=== PATIENT | female | born 1995 | race Caucasian/White ===

== ENCOUNTER 2023-05-21 16:10 | Emergency (ER) | payer OTHER, SELFPAY ==
[2023-05-21 16:13] VITALS: BP 146/86; PULSE 103; O2SAT 99
[2023-05-21 16:25] VITALS: BP 128/78; PULSE 100; RESP 16; TEMP 36.6; O2SAT 98; BMI 21.0
--- NOTE | 2023-05-21 16:46 | ECG_ITS ---
Test Reason : ETOH Blood Pressure : / mmHG Vent. Rate : 076 BPM Atrial Rate : 076 BPM P-R Int : 164 ms QRS Dur : 080 ms QT Int : 388 ms P-R-T Axes : 077 074 063 degrees QTc Int : 436 ms Normal sinus rhythm Normal ECG No previous ECGs available Referred By: Darryl Loaiza Electronically Signed By:NINA DUTTON
--- NOTE | 2023-05-21 16:46 | ED.GENADULT ---
HPI - General Adult General Chief complaint: ETOH/Substance Use Stated complaint: feeling sick after smoking crack, per ems Time Seen by Provider: 05/21/23 16:30 Source: patient Mode of arrival: ambulatory Limitations: no limitations History of Present Illness HPI narrative: Patient history of heroin abuse today for the 1st time tried cocaine after using cocaine patient felt heart racing and anxious Related Data Allergies Allergy/AdvReac Type Severity Reaction Status Date / Time No Known Allergies Allergy Verified 05/21/23 16:46 Review of Systems Review of Systems: Yes all other systems are reviewed and are negative [facility] Social History Social History Smoked in Last 30 Days: No Use of substances other than those prescribed or required for medical reasons: Yes Substance Use Type: Crack/Cocaine and Heroin Substance Use Frequency: Occasionally Substance Use Frequency Other:: once in a while for heroin; today first time using crack Last Used Substance: Just Prior to Admission Any prior treatment program specific to substance use: Yes Advance Directives: No Advance Directives Information Provided: No Physical Exam ED Vital Signs: Vital Signs - 24 hr 05/21/23 16:25 05/21/23 17:24 05/21/23 17:55 Temperature 97.8 F Pulse Rate 100 76 Respiratory Rate 16 15 Blood Pressure 128/78 123/65 Pulse Oximetry 98 98 99 Oxygen Delivery Method Room Air Room Air Room Air BMI result Body Mass Index 21.0 Appearance: Alert. Oriented X3. No acute distress. Eyes: PERRLA, No Nystagmus ENT: Pharynx normal. Oral Mucosa moist Neck: Normal inspection. Neck supple. CVS: Normal heart rate and rhythm. Pulses normal. Respiratory: No respiratory distress. Equal air entry bilateral, no wheezing/rales/rhonchi Abdomen: Soft and nontender. Bowel sounds are present, no mass palpable, no CVA tenderness Skin: Skin warm and dry. Normal skin color. Normal skin turgor. Extremities: No lower extremity edema. No calf tenderness Neuro: Oriented X 3. No motor deficit. No sensory deficit.No cerebellar signs , cranial nerves II-XII intact Medical Decision Making Medical Decision Making MDM Narrative: Patient anxiety with palpitations secondary to cocaine use EKG normal discharge patient home advised not to use cocaine Independent Interpretation I performed an independent interpretation of an: EKG Interpretation: Normal sinus rhythm heart rate 76 beats per minute normal interval normal axis impression normal EKG Discharge Plan Discharge Clinical Impression: Cocaine abuse Patient Disposition: Home, Self-Care Instructions: Cocaine Abuse (ED) Additional Instructions: Stop using cocaine and heroin Follow-up with detox Interventions: ED Discharge Assessment Last Done: 05/21/23 17:56 Discharge Date/Time: 05/21/23 17:57
[2023-05-21 17:24] VITALS: O2SAT 98
--- NOTE | 2023-05-21 17:27 | PC.NURSE ---
resting calmly w/o distress in hallway. CIWA 0. vss. ecg being taken.
[2023-05-21 17:55] VITALS: BP 123/65; PULSE 76; RESP 15; O2SAT 99
== END 2023-05-21 17:57 | disposition home or self-care (01) ==
PROVIDERS: Emergency Provider Internal Medicine
DX: F14.19 Cocaine abuse with unspecified cocaine-induced disorder (principal); F11.10 Opioid abuse, uncomplicated; Z71.51 Drug abuse counseling and surveillance of drug abuser
CPT/HCPCS: 93005; 99283; 99285

== ENCOUNTER → 2023-05-21 16:46 | Outpatient (BNV) | payer OTHER, SELFPAY | PROVIDERS: Emergency Provider Internal Medicine; Visit Provider Internal Medicine | DX: R41.82 Altered mental status, unspecified (principal) | CPT/HCPCS: 93010 ==

== ENCOUNTER 2023-09-09 22:02 | Emergency (ER) | payer MEDICAID, SELFPAY ==
--- NOTE | 2023-09-09 | ECG_ITS ---
Test Reason : CHEST PAIN Blood Pressure : / mmHG Vent. Rate : 105 BPM Atrial Rate : 105 BPM P-R Int : 138 ms QRS Dur : 074 ms QT Int : 328 ms P-R-T Axes : 084 068 016 degrees QTc Int : 433 ms Sinus tachycardia Possible Left atrial enlargement Nonspecific ST and T wave abnormality RSR' or QR pattern in V1 suggests right ventricular conduction delay Abnormal ECG When compared with ECG of 21-MAY-2023 17:32, Non-specific change in ST segment in Inferior leads Non-specific change in ST segment in Anterolateral leads Inverted T waves have replaced nonspecific T wave abnormality in Inferior leads Referred By: Generic ED Physician Electronically Signed By:BRIAN WATTS MD
--- NOTE | ~2023-09-09 | XR_ITS ---
EXAMINATION: XR CHEST CLINICAL INFORMATION: Chest pain COMPARISON: None available. TECHNIQUE: Frontal view of the chest was obtained. FINDINGS: The lungs are clear with no focal consolidation. No evidence of pneumothorax, pulmonary edema, or pleural effusions. The cardiomediastinal silhouette is unremarkable. No acute osseous findings. XR/XR chest 1V IMPRESSION: No acute cardiopulmonary findings.
[2023-09-09 22:11] VITALS: BP 149/80; PULSE 102; RESP 20; TEMP 36.7; O2SAT 98; BMI 22.7
[2023-09-09 22:28] LABS: Hematocrit 41.7 % (37.0-47.0); Hemoglobin 14.3 g/dl (12.0-16.0); Mean Corpuscular HGB Conc 34.3 g/dl (31.0-35.0); Mean Corpuscular Hemoglobin 30.2 pg (27.0-33.0); Mean Corpuscular Volume 88.2 fL (80.0-98.0); Mean Platelet Volume 9.8 fL (9.4-12.3); Platelet Count 240 X10*3/uL (160-400); Red Blood Count 4.73 X10*6/uL (4.20-5.50); Red Cell Distribution Width 12.9 % (11.0-16.0); White Blood Count 7.3 X10*3/uL (4.8-10.8)
[2023-09-09 22:42] LABS: Alanine Aminotransferase 18 U/L (0-31); Albumin Level 3.9 g/dL (3.5-5.0); Alkaline Phosphatase 92 U/L (39-117); Anion Gap 12 (12-20); Aspartate Amino Transferase 18 U/L (5-31); Bilirubin Total 0.3 mg/dL (0.0-1.0); Blood Urea Nitrogen 9 mg/dL (9-16); Calcium 9.5 mg/dL (8.4-10.2); Carbon Dioxide 25 mmol/L (22-29); Chloride 105 mmol/L (96-108); Creatinine Clr Calc Pharmacy 109.6; Estimated Glomerular Filt Rate > 60; Glucose Random 137 mg/dL (60-115); Potassium 3.4 mmol/L (3.3-5.1); Sodium 139 mmol/L (135-145); Total Protein 7.5 g/dL (6.5-8.0)
[2023-09-09 22:54] LABS: Troponin-I High Sensitivity < 2.7 ng/L (<3.5-17.0)
[2023-09-10 02:45] VITALS: BP 141/87; PULSE 61; RESP 16; O2SAT 99
--- NOTE | 2023-09-10 03:10 | ED.CHESTPAIN ---
HPI - Chest Pain General Chief Complaint: Chest Pain Stated Complaint: Chest Pain, Chest tightness, pounding heart Time Seen by Provider: 09/10/23 02:24 History of Present Illness HPI narrative: Patient is a 28-year-old female presents today with having chest pain is over the left chest area. The chest pain is constant sense of 21:00. Patient took a blood pressure at home was high. She has a history of hypertension. Been clean of heroin for the last 3 months. Patient also smokes cigarettes. No history of diabetes no history of high cholesterol no history of KS no family history of KS patient is from home. The pain is not associated with any shortness of breath no diaphoresis. Related Data Allergies Allergy/AdvReac Type Severity Reaction Status Date / Time No Known Allergies Allergy Verified 05/21/23 16:46 Review of Systems Review of Systems: Positive chest pain PMFSH Past Medical History Attestation statement: The following information was validated with the patient. Social History Substance Use Type: Crack/Cocaine and Heroin Advance Directives: No Advance Directives Information Provided: No Physical Exam Vital Signs: Vital Signs: Last Vital Signs Temp 98.0 F 09/09/23 22:11 Pulse 56 09/10/23 04:00 Resp 16 09/10/23 04:00 BP 115/71 09/10/23 04:00 Pulse Ox 98 09/10/23 04:00 O2 Del Method Room Air 09/10/23 04:00 BMI result Body Mass Index 22.7 Appearance: Alert. Oriented X3. No acute distress. Eyes: Pupils equal, round and reactive to light. ENT: Pharynx normal. Neck: Normal inspection. Neck supple. No lymph nodes noted. No crepitus CVS: Normal heart rate and rhythm. Pulses normal. Normal S1 and S2 Respiratory: No respiratory distress. Breath sounds normal. No Wheezing. No rales Abdomen: Soft and nontender. No rigidity. No distention. good BS x4 Skin: Skin warm and dry. Normal skin color. Normal skin turgor. Extremities: No lower extremity edema. Neurovascular intact to all extremities. No Lacerations. No Rash Neuro: Oriented X 3. No motor deficit. No sensory deficit. Moving all extermities. No slurred speech Medical Decision Making Medical Decision Making MDM Narrative: Patient well-appearing. Chest pain atypical for ACS. She is only 28 years old. She is not on control pills. There is no leg swelling. There is no history of blood clots. No history of cancer. Making PE unlikely. Patient's chest pain atypical for ACS she does have 2 risk factor but she is 28 years old good her troponin is negative x2 sets. Unlikely ACS. Heart score is less than 3. Chest x-ray being done to rule out the possibility of pneumonia pneumothorax Differential Diagnosis Differential Diagnoses: The differential diagnosis associated with the presentation includes ACS, PE, pneumonia, pneumothorax Admission/Observation Consideration of admission/observation: Escalation of care including admission/observation considered Lab Data [facility] Lab Attestation statement: I reviewed the patient's lab results. 09/09/23 22:22 09/09/23 22:22 Labs: Lab Results 09/09/23 09/10/23 Range/Units 22:22 03:30 WBC 7.3 (4.8-10.8) X10*3/uL RBC 4.73 (4.20-5.50) X10*6/uL Hgb 14.3 (12.0-16.0) g/dl Hct 41.7 (37.0-47.0) % MCV 88.2 (80.0-98.0) fL MCH 30.2 (27.0-33.0) pg MCHC 34.3 (31.0-35.0) g/dl RDW 12.9 (11.0-16.0) % Plt Count 240 (160-400) X10*3/uL MPV 9.8 (9.4-12.3) fL Absolute Nucleated RBC 0.000 (0.0-0.012) X10*3/uL Nucleated RBC % (auto) 0.0 (0.0-0.2) /100WBC Sodium 139 (135-145) mmol/L Potassium 3.4 (3.3-5.1) mmol/L Chloride 105 (96-108) mmol/L Carbon Dioxide 25 (22-29) mmol/L Anion Gap 12 (12-20) BUN 9 (9-16) mg/dL Creatinine 0.75 (0.5-1.4) mg/dL Estim Creat Clear Calc 109.6 Estimated GFR > 60 Random Glucose 137 H (60-115) mg/dL Calcium 9.5 (8.4-10.2) mg/dL Total Bilirubin 0.3 (0.0-1.0) mg/dL AST 18 (5-31) U/L ALT 18 (0-31) U/L Alkaline Phosphatase 92 (39-117) U/L Troponin I High Sens < 2.7 < 2.7 (<3.5-17.0) ng/L Total Protein 7.5 (6.5-8.0) g/dL Albumin 3.9 (3.5-5.0) g/dL Radiology Impression Discussion of test interpretation with radiology: I have reviewed the radiologist's reading. Independent Historian Clinical information obtained from an independent historian. History obtained from or confirmed by: Spouse Discharge Plan Discharge Clinical Impression: Chest pain Patient Disposition: Home, Self-Care Instructions: Chest Pain (ED) Referrals: Kurt Hernandez MD [Physician] - 09/15/23
[2023-09-10 04:00] VITALS: BP 115/71; PULSE 56; RESP 16; O2SAT 98
[2023-09-10 04:03] LABS: Troponin-I High Sensitivity < 2.7 ng/L (<3.5-17.0)
== END 2023-09-10 05:18 | disposition home or self-care (01) ==
PROVIDERS: Emergency Provider Emergency Medicine Emergency Medical Services
DX: R07.9 Chest pain, unspecified (principal); I10 Essential (primary) hypertension
CPT/HCPCS: 36415; 71045; 80053; 84484; 85027; 93005; 99283; 99284

== ENCOUNTER → 2023-11-24 16:05 | Outpatient (REF) | payer MEDICAID, SELFPAY ==
--- NOTE | 2023-11-24 16:09 | CA_ITS ---
Transthoracic Echocardiogram Patient (Last, First, Middle): Ju Bhardwaj, Gender: Female Date of : 1995 Age: 28 Procedure Date: 11/24/2023 Procedure Type: Transthoracic Echocardiogram Location: OP Height: 167.64 cm Weight: 63.5 kg BSA: 1.72 m2 Heart Rate: 51 bpm BP: 124 / 70 mmHg Forest [employer] Teacher: RIVKA Referring MD: Belkys NAVA Symptoms: R07.89 CHEST PAIN Study Quality: Adequate ECG Rhythm: Bradycardia Conclusions: - The left ventricular systolic function is normal. The calculated ejection fraction is 61% by biplane method. - No obvious valvular pathology seen on this study. Findings Left Ventricle Normal left ventricular cavity size. There is normal left ventricular wall thickness. The left ventricular systolic function is normal. The calculated ejection fraction is 61% by biplane method. There is no evidence of regional wall motion abnormalities. Diastolic function is normal for age. Right Ventricle Normal right ventricular cavity size and systolic function. Atria Both atria are normal in size. Aortic Valve There is a normal trileaflet aortic valve. There is no aortic valve stenosis. There is no aortic valve regurgitation. Mitral Valve The mitral valve appears normal. There is trace mitral valve regurgitation. There is no mitral valve stenosis. Pulmonic Valve The pulmonic valve is likely normal. Tricuspid Valve Normal tricuspid valve structure. There is trace tricuspid valve regurgitation. There is no evidence of pulmonary hypertension. Great Vessels The asc aorta is normal in size. Venous The inferior vena cava is normal in size and collapses greater than 50% with inspiration. Pericardium/Pleural There is no evidence of pericardial effusion. Prior Study Comparison No prior study available for comparison. Recommendations, Care & Conclusions No obvious valvular pathology seen on this study. Measurements 2D Linear Measurements IVSd: 0.72 0.6-0.9/0.6-1.0 cm LVIDd: 4.52 3.9-5.3/4.2-5.9 cm LVIDd Index: 2.63 2.4-3.2/2.2-3.1 cm/m2 LVIDs: 3.09 2.0-3.6 cm LVPWd: 0.83 0.7-1.1 cm Ao Root: 2.80 2.1-3.5 cm LA Diam: 2.70 2.7-3.8/3.0-4.0 cm LAIDs Index: 1.57 1.5-2.3 cm/m2 LV Mass: 136.79 67-162/88-224 g LV Mass Index: 79.53 43-95/49-115 g/m2 LVOT Diam: 2.10 3.0+(-)1.3 cm 2D Systolic Function EF 4C: 66.20 >55% EF 2C: 56.50 >55% EF BiP: 60.90 >55% Mitral Valve MV Pk E: 0.89 MV PK A: 0.38 MV Decel Time: 315.00 E/A: 2.40 E'Lateral: 19.60 E'Medial: 11.70 E/E' Med: 7.60 E/E' Lat: 4.50 PHT: 92.00 MVA PHT: 2.39 Decel [place]: 2.83 Aortic Valve AoV Pk Alex: 1.21 AoV Mn Alex: 0.79 AoV VTI: 0.30 AoV Pk Grad: 6.00 Aov Mn Grad: 3.00 LESA Cont.VTI: 2.46 LVOT LVOT Pk Alex: 0.82 LVOT Mn Alex: 0.58 LVOT VTI: 0.22 LVOT Pk Grad: 3.00 LVOT Mn Grad: 2.00 LVOT Diam: 2.10 LVOT Area: 3.46 Diastolic Function MV Pk E: 0.89 MV Pk A: 0.38 E/A: 2.40 E'Medial: 11.70 E/E' Med: 7.60 E' Laterial: 19.60 E/E' Lat: 4.50 Right Ventricle TAPSE (mm): 26.90 TVS' Alex: 13.50 Tricuspid Valve TR Pk Alex: 1.94 TR Pk Grad: 15.00 RA Press: 3.00 RVSP: 18.00 Great Vessels Aorta Ao Root-2D: 2.80 2.0-3.7 cm Sinus of Valsalva: 2.80 2.0-3.5 cm Ao Asc: 3.10 2.1-3.4 cm Pulmonary Valve PV Pk Alex: 0.92 Peak PV Grad: 3.00 Updated in Other Vendor System with Status of Final Juan Troncoso MD electronically signed on 11/25/2023 1:22:05 PM with status of Final
== END ==
LOC: HO.CARD 16:05
PROVIDERS: PCP Physician Assistant Medical; Visit Provider Physician Assistant Medical
DX: R07.89 Other chest pain (principal)
CPT/HCPCS: 93306

== ENCOUNTER → 2023-11-24 16:09 | Outpatient (BNV) | payer MEDICAID, SELFPAY | PROVIDERS: PCP Physician Assistant Medical; Visit Provider Internal Medicine | DX: R07.89 Other chest pain (principal) | CPT/HCPCS: 93306 ==

== ENCOUNTER 2024-02-10 01:36 | Emergency (ER) | payer MEDICAID, SELFPAY ==
--- NOTE | 2024-02-10 | ECG_ITS ---
Test Reason : CHEST PAIN Blood Pressure : / mmHG Vent. Rate : 067 BPM Atrial Rate : 067 BPM P-R Int : 170 ms QRS Dur : 090 ms QT Int : 418 ms P-R-T Axes : 071 077 045 degrees QTc Int : 441 ms Normal sinus rhythm Nonspecific T wave abnormality Abnormal ECG When compared with ECG of 09-SEP-2023 22:09, Vent. rate has decreased BY 38 BPM Non-specific change in ST segment in Inferior leads Referred By: Generic ED Physician Electronically Signed By:JAVAD CLINE MD
[2024-02-10 01:40] VITALS: BP 127/84; BP 129/75; PULSE 68; PULSE 84; RESP 17; TEMP 36.9; O2SAT 97; O2SAT 98; BMI 27.7
--- NOTE | 2024-02-10 02:05 | PC.NURSE ---
pt biba from home, a&ox4, respirations even and unlabored, pt reporting chest pain since july, reports it has been increasing x3 days, reports nausea. pt reports pain is epigatric and left sided chest. pt reports being seen by lithographed plate inspector and reports having nothing found medically. pt denies vomiting and diarrhea, pt normal sinus on tele 60-64bpm.
--- NOTE | 2024-02-10 02:09 | ED.CHESTPAIN ---
HPI - Chest Pain General Chief Complaint: Chest Pain Stated Complaint: CHEST PAIN Time Seen by Provider: 02/10/24 01:41 Source: patient Mode of arrival: EMS History of Present Illness HPI narrative: 28-year-old female with history of asthma and ongoing chest pain which she has had for over 1 week this time and describes it as sharp along the lower left border of her chest with reproducible chest pain and then states that it also comes up the left parasternal border and she does describe that she felt a little bit dizzy earlier on in the day and has contacted her primary care doctor as well as her communications equipment supervisor, she reports that she had a stress test approximately 1 week ago and is unsure of the results. Related Data Allergies Allergy/AdvReac Type Severity Reaction Status Date / Time No Known Allergies Allergy Verified 02/10/24 01:42 Review of Systems Review of Systems: Pertinent positives and negatives as stated in HPI REPLACED BY [facility] Past Medical History Source: nursing notes reviewed Social History Social History Alcohol intake: never Smoked in Last 30 Days: Yes Use of substances other than those prescribed or required for medical reasons: Yes Substance Use Type: Marijuana Advance Directives: No Advance Directives Information Provided: No Do you have a plan to hurt others: No Plan Patient : No Physical Exam Vital Signs: Vital Signs: Last Vital Signs Temp 98.5 F 02/10/24 01:40 Pulse 68 02/10/24 01:40 Resp 17 02/10/24 01:40 BP 129/75 02/10/24 01:40 Pulse Ox 97 02/10/24 01:40 O2 Del Method Room Air 02/10/24 01:40 BMI result Body Mass Index 27.7 VITAL SIGNS: Reviewed. GENERAL: Well developed, well nourished, in no acute distress. HEAD: Normocephalic/atraumatic EYES: PERRLA, EOMI LUNGS: Normal breath sounds. No adventitious sounds or accessory muscle use. SpO2<97>; CHEST WALL: Reproducible chest pain noted at the left midclavicular line at the lower border of the left chest all without obvious deformity, no crepitus CARDIOVASCULAR: Regular rate and rhythm without noted murmurs, no JVD or lower extremity edema. ABDOMEN: Soft, non-tender, non-distended with bowel sounds. MUSCULOSKELETAL: No tenderness, deformities, or effusions noted on gross inspection. EXTREMITIES: No cyanosis, clubbing or edema. SKIN: Inspection of the skin reveals no rashes NEUROLOGIC: Alert and oriented x 4. Strength and sensation to light touch were grossly intact x 4. Medical Decision Making Medical Decision Making [facility] Narrative: 28-year-old female with history and clinical presentation, DDX: Anxiety, MSK, lower clinical suspicion for pleurisy/pneumonia/ACS. Every reviewed all investigations and hematologic indices are grossly within normal limits without evidence of anemia or leukocytosis. Chemistry disease are grossly within normal limits without any noted derangements, there is no evidence of JUANPABLO/electrolyte or liver enzyme derangements and high sensitivity troponin is undetectable and there are no acute changes on EKG. My interpretation is that patient is experiencing musculoskeletal associated discomfort and recommended the use of Tylenol and ibuprofen as well as continued follow-up with her primary care doctor and communications equipment supervisor. Differential Diagnosis Differential Diagnoses: The differential diagnosis associated with the presentation includes Please see the discussion above Admission/Observation Consideration of admission/observation: Escalation of care including admission/observation considered Please see the discussion above Lab Data [facility] Lab Attestation statement: I reviewed the patient's lab results. Please see the discussion above 02/10/24 02:19 02/10/24 02:19 Labs: Lab Results 02/10/24 Range/Units 02:19 WBC 7.2 (4.8-10.8) X10*3/uL RBC 4.48 (4.20-5.50) X10*6/uL Hgb 13.6 (12.0-16.0) g/dl Hct 39.4 (37.0-47.0) % MCV 87.9 (80.0-98.0) fL MCH 30.4 (27.0-33.0) pg MCHC 34.5 (31.0-35.0) g/dl RDW 12.4 (11.0-16.0) % Plt Count TNP MPV 10.5 (9.4-12.3) fL Immature Gran % (Auto) 0.6 H (0.0-0.4) % Neut % (Auto) 55.9 (45-73) % Lymph % (Auto) 34.2 (20-40) % [place] % (Auto) 6.8 (2-11) % Eos % (Auto) 1.8 (0-4) % Baso % (Auto) 0.7 (0-2) % Lymph # (Auto) 2.5 (1.2-4.9) X10*3/uL [place] # (Auto) 0.5 (0.1-1.2) X10*3/uL Eos # (Auto) 0.1 (0.0-0.4) X10*3/uL Baso # (Auto) 0.1 (0.0-0.2) X10*3/uL Abs Immat Gran (auto) 0.04 H (0.00-0.03) X10*3/uL Absolute Neuts (auto) 4.0 (2.0-8.3) x10*3/uL Absolute Nucleated RBC 0.000 (0.0-0.012) X10*3/uL Nucleated RBC % (auto) 0.0 (0.0-0.2) /100WBC Smear Tech's Comments VERIFIED Sodium 139 (135-145) mmol/L Potassium 3.8 (3.3-5.1) mmol/L Chloride 107 (96-108) mmol/L Carbon Dioxide 22 (22-29) mmol/L Anion Gap 14 (12-20) BUN 11 (9-16) mg/dL Creatinine 0.71 (0.5-1.4) mg/dL Estim Creat Clear Calc 125.4 Estimated GFR > 60 Random Glucose 89 (60-115) mg/dL Calcium 9.4 (8.4-10.2) mg/dL Total Bilirubin 0.3 (0.0-1.0) mg/dL AST 19 (5-31) U/L ALT 18 (0-31) U/L Alkaline Phosphatase 81 (39-117) U/L Troponin I High Sens < 2.7 (<3.5-17.0) ng/L Total Protein 7.1 (6.5-8.0) g/dL Albumin 3.9 (3.5-5.0) g/dL Independent Interpretation I performed an independent interpretation of an: EKG Interpretation: Normal sinus rhythm, HR-67, no STEMI, RI/QRS/QTC is within normal limits. External Record Review External record reviewed: Outpatient record, Prior outpatient labs and Prior outpatient radiology Critical Care Time Critical Care Time Critical Care Time: Yes Total Critical Care Time: 45 Attestation: I personally attest to this time spent taking care of the patient. Discharge Plan Discharge Clinical Impression: Atypical chest pain, Chest wall pain Instructions: Chest Wall Pain (ED) Additional Instructions: 1. Recommend [id number] Tylenol/ibuprofen as needed for pain control, may also consider [id number] lidocaine patch for additional symptom relief. 2. Please follow-up with your primary care doctor and communications equipment supervisor 1st thing in the morning. Return to the ER for any worsening symptoms. Print Language: Upper Sorbian
[2024-02-10 02:35] LABS: Basophils Absolute Auto 0.1 X10*3/uL (0.0-0.2); Basophils Percent Auto 0.7 % (0-2); Eosinophils Absolute Auto 0.1 X10*3/uL (0.0-0.4); Eosinophils Percent Auto 1.8 % (0-4); Hematocrit 39.4 % (37.0-47.0); Hemoglobin 13.6 g/dl (12.0-16.0); Imm Gran Abs Auto 0.04 X10*3/uL (0.00-0.03); Imm Gran Pct Auto 0.6 % (0.0-0.4); Lymphocytes Absolute Auto 2.5 X10*3/uL (1.2-4.9); Lymphocytes Percent Auto 34.2 % (20-40); MANUAL DIFF FLAG SCAN; Mean Corpuscular HGB Conc 34.5 g/dl (31.0-35.0); Mean Corpuscular Hemoglobin 30.4 pg (27.0-33.0); Mean Corpuscular Volume 87.9 fL (80.0-98.0); Mean Platelet Volume 10.5 fL (9.4-12.3); Monocytes Absolute Auto 0.5 X10*3/uL (0.1-1.2); Monocytes Percent Auto 6.8 % (2-11); Neutrophils Percent Auto 55.9 % (45-73); PLT CLUMP 1; Red Blood Count 4.48 X10*6/uL (4.20-5.50); Red Cell Distribution Width 12.4 % (11.0-16.0); SCAN SMEAR FLAG 1
[2024-02-10 02:38] LABS: Alanine Aminotransferase 18 U/L (0-31); Albumin Level 3.9 g/dL (3.5-5.0); Alkaline Phosphatase 81 U/L (39-117); Anion Gap 14 (12-20); Aspartate Amino Transferase 19 U/L (5-31); Bilirubin Total 0.3 mg/dL (0.0-1.0); Blood Urea Nitrogen 11 mg/dL (9-16); Calcium 9.4 mg/dL (8.4-10.2); Carbon Dioxide 22 mmol/L (22-29); Chloride 107 mmol/L (96-108); Creatinine Clr Calc Pharmacy 125.4; Estimated Glomerular Filt Rate > 60; Glucose Random 89 mg/dL (60-115); Potassium 3.8 mmol/L (3.3-5.1); Sodium 139 mmol/L (135-145); Total Protein 7.1 g/dL (6.5-8.0)
[2024-02-10 02:45] LABS: Troponin-I High Sensitivity < 2.7 ng/L (<3.5-17.0)
[2024-02-10 02:51] LABS: White Blood Count 7.2 X10*3/uL (4.8-10.8)
[2024-02-10 02:52] LABS: SLIDE REVIEW VERIFIED
[2024-02-10 04:20] VITALS: BP 118/71; PULSE 70; RESP 14; TEMP 36.7; O2SAT 99
== END 2024-02-10 04:25 | disposition home or self-care (01) ==
PROVIDERS: Emergency Provider Student in an Organized Health Care Education/Training Program
DX: R07.89 Other chest pain (principal)
CPT/HCPCS: 36415; 80053; 84484; 85025; 93005; 99283; 99285

== ENCOUNTER → 2024-02-10 01:44 | Outpatient (BNV) | payer MEDICAID, SELFPAY | PROVIDERS: Emergency Provider Student in an Organized Health Care Education/Training Program; Visit Provider Internal Medicine Cardiovascular Disease | DX: R07.9 Chest pain, unspecified (principal); R94.31 Abnormal electrocardiogram [ECG] [EKG] | CPT/HCPCS: 93010 ==

== ENCOUNTER 2024-06-28 18:40 | Emergency (ER) | payer MEDICAID, SELFPAY ==
--- NOTE | ~2024-06-28 | XR_ITS ---
EXAMINATION: XR CHEST CLINICAL INFORMATION: Chest pain COMPARISON: Chest x-ray September 10, 2023 TECHNIQUE: 2 views of the chest were obtained. FINDINGS: No significant abnormality is noted involving the heart, lungs, mediastinum, bony thorax or soft tissues. XR/XR chest 2V IMPRESSION: Unremarkable examination. Electronically signed by: Smooth Lee MD 06/28/2024 09:03 PM EDT RP
--- NOTE | 2024-06-28 18:44 | ECG_ITS ---
Test Reason : chest pain Blood Pressure : / mmHG Vent. Rate : 059 BPM Atrial Rate : 059 BPM P-R Int : 144 ms QRS Dur : 080 ms QT Int : 424 ms P-R-T Axes : 076 050 020 degrees QTc Int : 419 ms Sinus bradycardia Nonspecific T wave abnormality Abnormal ECG When compared with ECG of 10-FEB-2024 01:44, No significant change was found Referred By: Generic ED Physician Electronically Signed By:LÓPEZ MORGAN
[2024-06-28 18:47] VITALS: BP 115/70; PULSE 70; O2SAT 98
--- NOTE | 2024-06-28 19:16 | ED_ITS ---
HPI - General Adult General Chief complaint: Chest Pain Stated complaint: CHEST PRESSURE/LT HEAD/UNWELL PER EMS Related Data Allergies Allergy/AdvReac Type Severity Reaction Status Date / Time No Known Allergies Allergy Verified 06/28/24 19:20 [facility] Social History Social History Alcohol intake: never Substance Use Type: Marijuana Advance Directives: No Advance Directives Information Provided: No Do you have a plan to hurt others: No Plan Physical Exam ED Vital Signs: Vital Signs - 24 hr 06/28/24 19:18 Temperature 97.2 F Pulse Rate 81 Respiratory Rate 16 Blood Pressure 128/87 Pulse Oximetry 99 Oxygen Delivery Method Room Air BMI result Body Mass Index 31.0 Course Course Course Narrative: This is an RME: Additional HPI, ROS, PE not included below will be deferred to primary provider. RME assessment and note performed by: Nereida Gao PA-C This is a [id number], with a hx of asthma, HTN who presents to the ER with complaints of chest pain. Pt has had intermittent CP for the last year. Reports she had a near syncopal episode today. She has been worked up through cardiology in the past for this. Plan: Labs, UA, EKG, CXR Reevaluation(s) Reevaluation #1: Patient left without completing treatment. Medical Decision Making Lab Data 06/28/24 19:34 06/28/24 19:34 Labs: Lab Results 06/28/24 Range/Units 19:34 WBC 6.6 (4.8-10.8) X10*3/uL RBC 4.46 (4.20-5.50) X10*6/uL Hgb 13.6 (12.0-16.0) g/dl Hct 39.1 (37.0-47.0) % MCV 87.7 (80.0-98.0) fL MCH 30.5 (27.0-33.0) pg MCHC 34.8 (31.0-35.0) g/dl RDW 12.5 (11.0-16.0) % Plt Count 282 (160-400) X10*3/uL MPV 9.6 (9.4-12.3) fL Immature Gran % (Auto) 0.2 (0.0-0.4) % Neut % (Auto) 53.8 (45-73) % Lymph % (Auto) 35.7 (20-40) % [place] % (Auto) 7.1 (2-11) % Eos % (Auto) 2.1 (0-4) % Baso % (Auto) 1.1 (0-2) % Lymph # (Auto) 2.4 (1.2-4.9) X10*3/uL [place] # (Auto) 0.5 (0.1-1.2) X10*3/uL Eos # (Auto) 0.1 (0.0-0.4) X10*3/uL Baso # (Auto) 0.1 (0.0-0.2) X10*3/uL Abs Immat Gran (auto) 0.01 (0.00-0.03) X10*3/uL Absolute Neuts (auto) 3.6 (2.0-8.3) x10*3/uL Absolute Nucleated RBC 0.000 (0.0-0.012) X10*3/uL Nucleated RBC % (auto) 0.0 (0.0-0.2) /100WBC PT 12.1 (11.1-13.3) SEC INR 1.0 (0.9-1.1) Sodium 140 (135-145) mmol/L Potassium 3.9 (3.3-5.1) mmol/L Chloride 109 H (96-108) mmol/L Carbon Dioxide 24 (22-29) mmol/L Anion Gap 11 L (12-20) BUN 9 (9-16) mg/dL Creatinine 0.67 (0.5-1.4) mg/dL Estim Creat Clear Calc 135.3 Estimated GFR > 60 Random Glucose 98 (60-115) mg/dL Calcium 9.4 (8.4-10.2) mg/dL Magnesium 2.1 (1.6-2.6) mg/dL Total Bilirubin 0.1 (0.0-1.0) mg/dL Direct Bilirubin < 0.2 (0.0-0.5) mg/dL AST 16 (5-31) U/L ALT 15 (0-31) U/L Alkaline Phosphatase 91 (39-117) U/L Troponin I High Sens < 2.7 (<3.5-17.0) ng/L Total Protein 7.4 (6.5-8.0) g/dL Albumin 4.1 (3.5-5.0) g/dL Influenza Type A (PCR) NEGATIVE (Negative) Influenza Type B (PCR) NEGATIVE (Negative) RSV RNA Qual (PCR) NEGATIVE (Negative) SARS-CoV-2 RNA (RT-PCR) NEGATIVE (Negative) Discharge Plan Discharge Clinical Impression: Chest pain Patient Disposition: Left W/O Completing Treatment Discharge Date/Time: 06/28/24 22:18
[2024-06-28 19:18] VITALS: BP 128/87; PULSE 81; RESP 16; TEMP 36.2; O2SAT 99; BMI 31.0
[2024-06-28 19:39] LABS: MANUAL DIFF FLAG NO
[2024-06-28 19:40] LABS: Basophils Absolute Auto 0.1 X10*3/uL (0.0-0.2); Basophils Percent Auto 1.1 % (0-2); Eosinophils Absolute Auto 0.1 X10*3/uL (0.0-0.4); Eosinophils Percent Auto 2.1 % (0-4); Hematocrit 39.1 % (37.0-47.0); Hemoglobin 13.6 g/dl (12.0-16.0); Imm Gran Abs Auto 0.01 X10*3/uL (0.00-0.03); Imm Gran Pct Auto 0.2 % (0.0-0.4); Lymphocytes Absolute Auto 2.4 X10*3/uL (1.2-4.9); Lymphocytes Percent Auto 35.7 % (20-40); Mean Corpuscular HGB Conc 34.8 g/dl (31.0-35.0); Mean Corpuscular Hemoglobin 30.5 pg (27.0-33.0); Mean Corpuscular Volume 87.7 fL (80.0-98.0); Mean Platelet Volume 9.6 fL (9.4-12.3); Monocytes Absolute Auto 0.5 X10*3/uL (0.1-1.2); Monocytes Percent Auto 7.1 % (2-11); Neutrophils Absolute Auto 3.6 x10*3/uL (2.0-8.3); Neutrophils Percent Auto 53.8 % (45-73); Platelet Count 282 X10*3/uL (160-400); Red Blood Count 4.46 X10*6/uL (4.20-5.50); Red Cell Distribution Width 12.5 % (11.0-16.0); White Blood Count 6.6 X10*3/uL (4.8-10.8)
[2024-06-28 19:50] LABS: Prothrombin Time 12.1 SEC (11.1-13.3)
[2024-06-28 20:00] LABS: Alanine Aminotransferase 15 U/L (0-31); Albumin Level 4.1 g/dL (3.5-5.0); Alkaline Phosphatase 91 U/L (39-117); Anion Gap 11 (12-20); Aspartate Amino Transferase 16 U/L (5-31); Bilirubin Direct < 0.2 mg/dL (0.0-0.5); Bilirubin Total 0.1 mg/dL (0.0-1.0); Blood Urea Nitrogen 9 mg/dL (9-16); Calcium 9.4 mg/dL (8.4-10.2); Carbon Dioxide 24 mmol/L (22-29); Chloride 109 mmol/L (96-108); Creatinine Clr Calc Pharmacy 135.3; Estimated Glomerular Filt Rate > 60; Glucose Random 98 mg/dL (60-115); Magnesium 2.1 mg/dL (1.6-2.6); Potassium 3.9 mmol/L (3.3-5.1); Sodium 140 mmol/L (135-145); Total Protein 7.4 g/dL (6.5-8.0)
[2024-06-28 20:08] LABS: Troponin-I High Sensitivity < 2.7 ng/L (<3.5-17.0)
[2024-06-28 20:18] LABS: Influenza A PCR NEGATIVE (Negative); Influenza B PCR NEGATIVE (Negative); Resp Syncy Virus RNA Qual PCR NEGATIVE (Negative); SARS COV2 PCR INHOUSE NEGATIVE (Negative)
== END 2024-06-28 22:18 | disposition left against medical advice (07) ==
PROVIDERS: Physician Assistant Medical; Emergency Provider Emergency Medicine
DX: R07.89 Other chest pain (principal); Z03.818 Encounter for observation for suspected exposure to other biological agents ruled out; Z79.899 Other long term (current) drug therapy
CPT/HCPCS: 0241U; 36415; 71046; 80048; 80076; 83735; 84484; 85025; 85610; 93005; 99283